=== PATIENT | male | born 1955 | race Hispanic/Latino ===

== ENCOUNTER → 2025-05-07 | Outpatient (CLI) | payer OTHER ==
--- NOTE | 2025-05-08 08:08 | HMCIMG ---
EXAMINATION: ULTRASOUND OF THE RETROPERITONEUM. CLINICAL HISTORY: Microscopic hematuria. COMPARISON: None. TECHNIQUE: Real-time grayscale ultrasound images of the kidneys. FINDINGS: The kidneys are normal in caliber, the right kidney measures 11.4 x 6.2 x 6.7 cm and the left kidney measures 11.2 x 5.6 x 5.0 cm in its craniocaudal, AP, and transverse dimensions respectively. There is normal renal cortical thickness, and cortical echogenicity. There is no renal calculus or hydronephrosis. The urinary bladder is normal in caliber and wall thickness (0.40 cm). There are no calculi in the urinary bladder. Pre-void volume is 100 cc and post-void volume is 14 cc. The prostate gland is bulky in caliber and measures 4.7 x 4.7 x 4.9 cm in the craniocaudal, AP, and transverse dimensions respectively with a volume of 57 cc. IMPRESSION: Moderate prostatic hypertrophy. /Ricky
== END | disposition home or self-care (01) ==
LOC: RAH 12:44
PROVIDERS: ATTEND Urology
DX: N40.0 Benign prostatic hyperplasia without lower urinary tract symptoms (principal); R31.29 Other microscopic hematuria
CPT/HCPCS: 76770